=== PATIENT | female | born 1960 | race Hispanic/Latino ===

== ENCOUNTER 2017-05-02 09:03 | Day surgery (SDC) | payer BC ==
[2017-04-28 10:50] VITALS: BMI 22.4
[2017-05-02 09:36] VITALS: RESP 18
[2017-05-02] MEDS ORDERED: Midazolam 2 MG/2 ML VIAL ONE (11:04)
[2017-05-02] MEDS ORDERED: Propofol 10 mg/ml Inj (20 ML) ONE (11:04)
[2017-05-02] MEDS ORDERED: Sodium Chloride 0.9% 1,000 ML IV SCH (12:30)
[2017-05-02 12:47] VITALS: TEMP 97.6
[2017-05-02 12:48] VITALS: PULSE 63; O2SAT 98
[2017-05-02 13:09] VITALS: BP 106/63
== END 2017-05-02 13:40 | disposition home or self-care (01) ==
LOC: ENDO 09:03
PROVIDERS: ATTEND Internal Medicine Gastroenterology
DX: K31.7 Polyp of stomach and duodenum (principal); K29.30 Chronic superficial gastritis without bleeding; K21.9 Gastro-esophageal reflux disease without esophagitis; K44.9 Diaphragmatic hernia without obstruction or gangrene; Z12.11 Encounter for screening for malignant neoplasm of colon; K57.30 Diverticulosis of large intestine without perforation or abscess without bleeding; K64.8 Other hemorrhoids; K62.1 Rectal polyp; K56.2 Volvulus; Z80.0 Family history of malignant neoplasm of digestive organs; Z80.3 Family history of malignant neoplasm of breast
CPT/HCPCS: 43239; 45380; 88305; 88312; 88342; J2250; J2704; J7040 ×2